=== PATIENT | female | born 1995 | race Caucasian/White ===

== ENCOUNTER 2025-01-19 19:41 | Emergency (ER) | payer BC, SELFPAY ==
[2025-01-19 19:45] VITALS: BP 158/99
--- NOTE | 2025-01-19 22:03 | ED.GENMED ---
History of Present Illness
General
Chief Complaint: Headache
Source: patient
Exam Limitations: none
Time Seen by Provider: 01/19/25 22:02
Nursing documentation reviewed up to this point in time: agreed with
History of Present Illness
History of Present Illness:
30-year-old female with history of migraines, states she is here for a migraine that has not improved despite her typical Nurtec and Excedrin. She has had a headache for 4 days, she is visiting here from [place] as her sister just had a baby and is
upstairs with her . She feels nauseous but has not vomited. She denies change in her vision, no recent trauma. She is in the process of arranging to get Botox for her migraines.
Past History
Past History
ED Past Medical History: Other (Migraines, tachycardia on propranolol)
ED Past Surgical History: Tonsilectomy
Social History
Tobacco: Non-smoker
Personal: Single
Living: with family
Review of Systems
Review of Systems
Allergies reviewed?: Yes
All Other Systems: ROS reviewed and negative except as documented in HPI and ROS
Phy Exam
Physical Exam
Physical Exam:
GENERAL: No acute distress. A&Ox3.
CONSTITUTIONAL: Afebrile.
EYES: clear, conjunctivae normal
ENMT: moist mucus membranes, Pharynx nl
RESPIRATORY: Regular respirations, nonlabored, lungs clear.
CARDIOVASCULAR: Regular rate and rhythm, no murmurs, no rubs.
GI: Soft, nontender, normal BS
MUSCULOSKELETAL: Moves with ease. Well perfused.
SKIN: Warm, dry, pink
PSYCH: Normal mood and affect. Well kept, interactive and appropriate
NEUROLOGIC: Awake, alert and oriented. No focal neurological deficits
Course
Orders/Labs/Results
Orders:
Orders
01/19/25 22:10
0.9% Sodium Chloride 1000 ml [Nss] 1,000 ml IV BOLUS
Diphenhydramine [Benadryl] 50 mg IV NOW STA
Ondansetron Injectable [Zofran] 4 mg IV NOW STA
Prochlorperazine [Compazine] 10 mg IV NOW STA
01/19/25 23:35
Ketorolac [Toradol] 15 mg IV NOW STA
Vital Signs
Initial and Last Documented VS:
Initial Vital Signs
Temp Pulse Resp BP Pulse Ox
98.1 F 87 16 158/99 97
01/19/25 19:45 01/19/25 19:45 01/19/25 19:45 01/19/25 19:45 01/19/25 19:45
Last Documented Vital Signs
Temp Pulse Resp BP Pulse Ox
98.1 F 89 21 113/69 97
01/19/25 19:45 01/20/25 00:24 01/20/25 00:24 01/20/25 00:24 01/20/25 00:24
MDM/Problems Addressed
MDM/Problems Addressed:
30-year-old female with history of migraines, states she is here for a migraine that has not improved despite her typical Nurtec and Excedrin. She has had a headache for 4 days, she is visiting here from [place] as her sister just had a baby and is
upstairs with her . She feels nauseous but has not vomited. She denies change in her vision, no recent trauma. She states with her travel here from [facility] and lots of activity, her headaches are worse. Nurtec and Excedrine no longer working
as well as they used to. She is in the process of arranging to get Botox for her migraines.
Afebrile, NAD, calm and pleasant
11:30 PM:
After IV fluids, IV Benadryl and Compazine, patient is no longer nauseous and states her headache is starting to improve. 09/01 from 11/01
IV Toradol ordered
*Pulse Oximetry
SaO2: 97
Oxygen Mode of Delivery: Room air
Patient hypoxic: not evaluated
*Critical Care Note
Total Time (30-74mins, 75-104mins- exclusive of procedures): Not Applicable
ED Attending Note
-
Portions of this chart may have been created with voice recognition software.� Occasional wrong word or��sound alike� substitutions may have occurred due to the inherent limitations of voice recognition software.
Discharge Plan
Departure
Patient Disposition: Home (Routine Discharge)
Date of Disposition: 01/20/25
Time of Disposition: 00:22
Patient with high blood pressure during this ER visit?: No
Condition: Good
Discharge Problem:
Headache
Instructions: Migraines (DC)
Prescriptions:
New
ondansetron 4 mg tablet,disintegrating
4 mg PO Q8H PRN (Reason: nausea and vomiting) 5 Days Qty: 15 0RF
Referrals:
UNKNOWN,NO INTERVIEW [Family Provider]
Activity Restrictions/Additional Instructions:
As we discussed, use the Zofran if needed for nausea.
You may return here at any time if your headache gets worse and not relieved with your Nurtec and Excedrine.
Interventions
Interventions:
*Risk Screen - Suicide Last Done: 01/19/25 19:45
*General Assessment Last Done: 01/19/25 19:45
*Neglect/Abuse Screening Last Done: 01/19/25 19:45
*ED- Fall Risk Assessment Last Done: 01/19/25 19:45
*ED COVID-19 Vaccine History Last Done: 01/19/25 19:45
*Nursing Disposition Last Done: 01/20/25 00:52
ED- Neurological Assessment Last Done: 01/19/25 22:04
Discharge Date and Time
Discharge Date/Time: 01/20/25 00:52
Print Language: SPANISH
[2025-01-19 22:04] VITALS: BMI 30.4
[2025-01-19] MEDS: COMPAZINE 10 MG IV (22:30)
[2025-01-19] MEDS: ZOFRAN 4 MG IV (22:35)
[2025-01-19] MEDS: BENADRYL 50 MG IV (22:35)
[2025-01-19 22:45] VITALS: BP 139/94
[2025-01-19] MEDS: NSS 1000 IV (22:52)
[2025-01-19 23:00] VITALS: BP 142/83
[2025-01-19 23:16] VITALS: BP 126/73
[2025-01-19] MEDS: TORADOL 15 MG IV (23:45)
[2025-01-20] VITALS: BP 114/67
[2025-01-20 00:24] VITALS: BP 113/69
== END 2025-01-20 00:52 | disposition home or self-care (01) ==
LOC: EMR 19:41
PROVIDERS: EMERGENCY PHYSICIAN Emergency Medicine
DX: G43.909 Migraine, unspecified, not intractable, without status migrainosus (principal)
CPT/HCPCS: 96374; 96375; 96361; 99284